=== PATIENT | male | born 1980 | race Caucasian/White ===

== ENCOUNTER 2020-11-07 01:28 | Emergency (ER) | payer OTHER ==
[2020-11-07 02:38] LABS: BASOPHIL 0.1 % (0-2); EOSINOPHIL 0 % (0-5); HCT 44.7 % (42.0-52.0); HGB 15.5 g/dl (13.2-18.0); MCH 30.3 pg (25.0-31.0); MCHC 34.7 g/dL (32.0-36.0); MCV 87.3 fL (78.0-100.0); MPV 10.3 fL (6.0-9.5); NEUTROPHIL 81.2 % (41-80); NRBC 0; PLT 148 K/uL (150-400); RBC 5.12 M/uL (4.70-6.00); RDW 11.6 % (11.5-14.0); WBC 6.8 K/uL (4.0-10.5)
[2020-11-07 02:47] LABS: BUN/CREAT RATIO (CALC) 12.9 RATIO; CREATININE 0.62 mg/dL (0.67-1.17); POTASSIUM 3.7 mmol/L (3.5-5.1)
[2020-11-07] MEDS ORDERED: ONDANSETRON ODT4 MG PO (03:54)
[2020-11-07] MEDS ORDERED: DICLOFENAC SODI75 MG PO (03:54)
== END 2020-11-07 04:00 | disposition home or self-care (01) ==
LOC: FER 01:28
PROVIDERS: Emergency Medicine
DX: Z53.8 Procedure and treatment not carried out for other reasons (principal)
CPT/HCPCS: 36415; 80048; 85025; J0780; J1100; J1885; J2405; J7120

== ENCOUNTER 2020-11-10 01:54 | Inpatient (IN) | payer OTHER ==
[~2020-11-10] VITALS: Ht 165.1 cm; Wt 71.9 kg
[~2020-11-10 01:54] MED LIST: DICLOFENAC SODI75 MG PO; ONDANSETRON ODT4 MG PO
[2020-11-10 03:11] LABS: BASOPHIL 0.2 % (0-2); EOSINOPHIL 0.3 % (0-5); HCT 44.5 % (42.0-52.0); LYMPHOCYTE 12.5 % (15-48); MCH 30.1 pg (25.0-31.0); MCHC 33.7 g/dL (32.0-36.0); MCV 89.2 fL (78.0-100.0); MONOCYTE 7.8 % (0-12); MPV 10.2 fL (6.0-9.5); NRBC 0; PLT 187 K/uL (150-400); RBC 4.99 M/uL (4.70-6.00); RDW 11.7 % (11.5-14.0); WBC 8.6 K/uL (4.0-10.5)
[2020-11-10 03:12] LABS: NEUTROPHIL 72.8 % (41-80)
[2020-11-10 03:27] LABS: ALBUMIN 2.8 g/dL (3.4-5.0); BILIRUBIN - TOTAL 0.3 mg/dL (0.2-1.0); BUN/CREAT RATIO (CALC) 13.8 RATIO; C-REACTIVE PROTEIN 17.2 mg/dL (<=0.90); CREATININE 0.58 mg/dL (0.67-1.17); GLOBULIN (CALCULATION) 3.7 g/dL; POTASSIUM 3.9 mmol/L (3.5-5.1); TOTAL PROTEIN 6.5 g/dL (6.4-8.2)
[2020-11-10 03:29] LABS: PRO-BNP 39 pg/mL (<125)
[2020-11-12 08:15] LABS: BASOPHIL 0.6 % (0-2); EOSINOPHIL 0 % (0-5); HCT 43.5 % (42.0-52.0); HGB 14.5 g/dl (13.2-18.0); LYMPHOCYTE 12.7 % (15-48); MCH 30.3 pg (25.0-31.0); MCHC 33.3 g/dL (32.0-36.0); MCV 90.8 fL (78.0-100.0); MONOCYTE 10.6 % (0-12); MPV 9.9 fL (6.0-9.5); NEUTROPHIL 71.4 % (41-80); NRBC 0; PLT 319 K/uL (150-400); RBC 4.79 M/uL (4.70-6.00); RDW 11.7 % (11.5-14.0); WBC 11.6 K/uL (4.0-10.5)
[2020-11-12 09:01] LABS: ALBUMIN 2.9 g/dL (3.4-5.0); BILIRUBIN - TOTAL 0.4 mg/dL (0.2-1.0); BUN/CREAT RATIO (CALC) 24.2 RATIO; C-REACTIVE PROTEIN 2.6 mg/dL (<=0.90); CREATININE 0.62 mg/dL (0.67-1.17); GLOBULIN (CALCULATION) 4.1 g/dL; POTASSIUM 4.3 mmol/L (3.5-5.1)
[2020-11-13] MEDS ORDERED: AZITHROMYCIN250 MG PO (11:33)
[2020-11-13] MEDS ORDERED: MEDROL 4MG DOSEP4 MG PO (11:33)
[2020-11-13] MEDS ORDERED: MELATONIN5 M2 PO (11:33)
--- NOTE | 2020-11-13 16:38 | NUR ---
11/13/20 Patient did not qualify for 02.
== END 2020-11-13 18:47 | disposition home or self-care (01) | DRG 177 ==
LOC: FER 01:54 → FMS 11:03
PROVIDERS: Emergency Medicine Emergency Medical Services; ADMIT Internal Medicine
PROC: XW033E5 Introduction of Remdesivir Anti-infective into Peripheral Vein, Percutaneous Approach, New Technology Group 5 (ICD-10-PCS; principal; 2020-11-10)
PROC: 8E0ZXY6 Isolation (ICD-10-PCS; 2020-11-10)
DX: U07.1 COVID-19 (principal); J96.01 Acute respiratory failure with hypoxia; J12.82 Pneumonia due to coronavirus disease 2019; E11.65 Type 2 diabetes mellitus with hyperglycemia
CPT/HCPCS: 36415; 36600; 71045; 71275; 80048; 80053; 82728; 82803; 83880; 84145; 84484; 85025; 85379; 86140; 87040; 93005; 94640; 94664; 94668; 94760; 94762; C9399; J0456; J0696; J0780; J1100; J1650; J1885; J2405; J7050; J7120; J8540; Q9967; U0002